=== PATIENT | female | born 1970 | race Caucasian/White ===

== ENCOUNTER 2020-04-18 18:45 | Emergency (ER) | payer MEDICAID, SELFPAY ==
[2020-04-18 19:16] VITALS: BP 117/82; PULSE 77; RESP 16; TEMP 36.8; O2SAT 98; BMI 21.8
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
[2020-04-18 21:39] VITALS: BP 111/73; PULSE 87; RESP 16; O2SAT 98
[2020-04-18] MEDS: diazePAM 5 mg Tablet PO (22:47)
[2020-04-18] MEDS: ondansetron 2 mg/ML SDV 2 mL 4 MG IM (22:47)
[2020-04-18] MEDS: ketorolac 60 mg/2 mL INJ IM (22:47)
[2020-04-18 23:40] VITALS: PULSE 76; RESP 14; O2SAT 98
[2020-04-18 23:41] VITALS: BP 112/74; PULSE 81; RESP 14; O2SAT 98
== END 2020-04-18 23:42 | disposition home or self-care (01) ==
PROVIDERS: Emergency Provider Physician Assistant
DX: F41.9 Anxiety disorder, unspecified (principal); M79.10 Myalgia, unspecified site
CPT/HCPCS: 12345; 96372; 99281; 99283; J1885; J2405

== ENCOUNTER 2020-08-10 14:50 | Emergency (ER) | payer SELFPAY ==
[2020-08-10 14:50] VITALS: BP 136/94; PULSE 73; RESP 18; TEMP 36.6; O2SAT 100; BMI 19.7
[2020-08-10 15:00] VITALS: O2SAT 100
--- NOTE | 2020-08-10 15:12 | ECG_ITS ---
[facility] Test Date: 2020-08-10 Pat Name: Chiquis [facility] Department: Room: Gender: Female Local Sales Associate: : 1970 Requested By: Rogelio Kelly Order Number: [id number] Balta MD: Teressa Vazquez M.D. Measurements Intervals [place] Rate: 60 P: 5 ID: [id number] QRS: 63 QRSD: 87 T: 52 QT: 405 QTc: 407 Interpretive Statements SINUS RHYTHM SEPTAL MYOCARDIAL INFARCTION [40+ ms Q WAVE IN V1/V2], OF INDETERMINATE AGE No previous ECG available for comparison Electronically Signed On 08-10-2020 19:39:21 CDT by Teressa Vazquez M.D. [id number]
--- NOTE | 2020-08-10 15:12 | CT_ITS ---
WS: [id number] CT HEAD NONCONTRAST HISTORY: AMS/fall/seizures with hx of CA TECHNIQUE: Contiguous axial imaging performed through the brain in 2.5 mm imaging. Bone and soft tiss ue windows. Sagittal and coronal reformats reviewed. All CT scans at [facility] use at le ast one of these dose optimization techniques: automated exposure control; mA and/or kV adjustment pe r patient size (includes targeted exams where dose is matched to clinical indication); or iterative r econstruction. DLP: 778.26 mGy.cm COMPARISON: None available. No acute intracranial hemorrhage, midline shift or mass effect. No atrophy or prior infarcts or herniation. Ventricles: Normal size with no hydrocephalus. Paranasal sinuses: As visualized are clear. Mastoid air cells: Well pneumatized. Calvarium and scalp: Skull is intact with no soft tissue edema or swelling. CT/CT head wo con* [id number] IMPRESSION: Negative head CT.
--- NOTE | 2020-08-10 15:12 | XRR_ITS ---
PROCEDURE INFORMATION: Exam: XR Chest, 1 View Exam date and time: 08/10/2020 3:13 PM Age: 50 years old Clinical indication: Cough and dyspnea; Additional info: Dyspnea/cough TECHNIQUE: Imaging protocol: XR of the chest Views: 1 view. COMPARISON: No relevant prior studies available. FINDINGS: Lungs: Unremarkable. No consolidation. Pleural space: Unremarkable. No pleural effusion. No pneumothorax. Heart/Mediastinum: Unremarkable. No cardiomegaly. Bones/joints: Unremarkable. XR/XR chest 1V portable [id number] IMPRESSION: No acute findings.
[2020-08-10 15:19] VITALS: BP 136/94; PULSE 76; RESP 15; O2SAT 100
--- NOTE | 2020-08-10 15:20 | PC.NURSE ---
BGL: 110
[2020-08-10 15:21] LABS: Glucose Point of Care 110 mg/dL (70-110)
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
[2020-08-10 15:40] LABS: ABG PCO2 34.2 mmHg (35-45); ABG PH Result 7.42 (7.35-7.45); Arterial Blood Gas Hematocrit 30.8 % (37-47); Base Excess ABG -1.9 mmol/L (-2.0-2.0); Blood Gas Allen Test Pos; Blood Gas Operator Identificat AMH; Blood Gas Sample Site Radial, right; Blood Gas Sample Type Arterial; Carboxyhemoglobin 0.8 %THgb (0.4-20.1); HCO3 ABG 22.1 mmol/L (22-26); HGB O2 Sat 95.1 % (95-100); Ionized Calcium Level - ABG 1.2 mmol/L (1.1-1.4); Methemoglobin 0.9 % (0.4-1.5); Oxygen Device ROOM AIR; Oxygen Saturation ABG 96.8; PO2 ABG 83.1 mmHg (80.0-100.0); Potassium Level - ABG 3.2 mmol/L (3.5-5.0)
[2020-08-10 15:54] LABS: Alanine Aminotransferase 10 U/L (0-33); Albumin Level 4.3 g/dL (3.5-5.2); Alkaline Phosphatase 73 IU/L (35-105); Anion Gap 19.4 (5-19); Aspartate Amino Transferase 20 U/L (0-32); Blood Urea Nitrogen 7 mg/dL (6-20); Calcium 9.5 mg/dL (8.5-10.5); Carbon Dioxide 19 mmol/L (22-29); Chloride 106 mmol/L (98-107); Creatine Phosphokinase 125 U/L (26-192); Globulin 2.5 g/dL (1.3-4.6); Glomerular Filtration Rate 105.8 mL/min (90-130); Glucose 111 mg/dL (65-115); Lipase 40 U/L (13-60); Osmolality Calculated 291 mOsm/kg (285-295); Potassium 3.4 mmol/L (3.5-5.1); Sodium 141 mmol/L (136-145); Total Bilirubin 0.2 mg/dL (0.15-1.2); Total Protein 6.8 g/dL (6.6-8.7)
[2020-08-10 16:14] VITALS: BP 115/76; PULSE 80; RESP 18; O2SAT 93
[2020-08-10 16:20] LABS: Alcohol Level < 10 mg/dL (0-10)
--- NOTE | 2020-08-10 16:23 | DCPLANNER ---
weight loss centre manager was asked to schedule a follow up appointment for patient with the office of Dr. Roldan. weight loss centre manager called the office of Dr. Roldan, spoke with Cassi, a follow up appointment was scheduled for Monday, August 24, 2020 at 1:00 with Jm CALVILLO. Clinic will call patient with appointment information.
[2020-08-10 16:26] VITALS: BP 111/72; BP 111/76; BP 123/82
[2020-08-10] MEDS: ketorolac 30 mg/mL INJ IVP (17:03)
[2020-08-10 17:30] VITALS: BP 115/80; PULSE 61; RESP 18; O2SAT 98
--- NOTE | 2020-08-27 15:16 | DCPLANNER ---
Patient had a follow up appointment scheduled for 08.24.[address] Roldan - patient did not attend appointment.
== END 2020-08-10 17:31 | disposition home or self-care (01) ==
PROVIDERS: Emergency Provider Family Medicine
DX: G40.909 Epilepsy, unspecified, not intractable, without status epilepticus (principal)
CPT/HCPCS: 12345; 36416; 36600; 70450; 71045; 80051; 80053; 80307; 82550; 82810; 82962; 83690; 83735; 83986; 93005; 96374; 96375; 99284; J1885; J1953

== ENCOUNTER 2020-10-05 16:27 | Inpatient (IN) | payer MEDICAID, SELFPAY ==
[2020-10-05] VITALS (8 sets, daily range): BP systolic 115–126; BP diastolic 68–90; PULSE 70–94; RESP 14–17; TEMP 36.3–37; O2SAT 97–99; BMI 23.5
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
[2020-10-05 18:02] LABS: Add Urine Microscopic? YES; Bilirubin Urine Neg (Negative); Blood Urine Neg (Negative); Glucose Urine UA Norm (Normal); Ketones Urine Negative (Negative); Leukocyte Esterase Urine 2+ (Negative); Nitrate Urine Negative (Negative); Protein Urine Neg (Negative); Specific Gravity, Urine 1.005 (1.005-1.030); Urine Appearance SL Hazy (CLEAR); Urine Color Yellow (Yellow); Urobilinogen Urine Norm (Negative); pH Urine 7 (5-7)
[2020-10-05 18:06] LABS: Add Urine Culture? No; Bacteria Urine TRACE /hpf; Squamous Epithelial Cell Urine 0-4 /hpf (0-5)
[2020-10-05 18:07] LABS: Amphetamines Screen Urine Negative (Negative); Barbiturates Screen Urine Negative (Negative); Benzodiazepines Screen Urine Positive (Negative); Cocaine Screen Urine Negative (Negative); Opiate Screen Urine Negative (Negative); PCP Screen Urine Negative (Negative); THC Screen Urine Positive (Negative)
[2020-10-05 18:45] LABS: Basophils % 0.5 %; Eosinophils # 0.1 10^3/uL (0.0-0.8); Eosinophils % 2.7 %; Hemoglobin 9.9 g/dL (11.5-15.3); Lymphocytes # 1.6 10^3/uL (0.8-4.8); Lymphocytes % 41.7 %; Mean Corpuscular HGB Conc 30.9 g/dL (30.0-36.0); Mean Corpuscular Hemoglobin 24.7 pg (28.0-34.0); Mean Corpuscular Volume 79.8 fL (81-99); Mean Platelet Volume 8.8 fL (7.4-10.4); Monocytes # 0.3 10^3/uL (0.2-0.9); Neutrophils # 1.75 10^3/uL (1.8-7.7); Neutrophils % 46.8 %; Nucleated Red Blood Cells % 0 %; Platelet Count 298 10^3/cmm (130-400); Red Blood Count 4.01 10^6/uL (4.1-5.3); Red Cell Distribution Width 16.7 % (12.1-15.1); White Blood Count 3.7 10^3/uL (4.0-10.0)
[2020-10-05 19:05] LABS: Acetaminophen < 5.0 ug/mL (10-30); Alanine Aminotransferase 63 U/L (0-33); Albumin Level 4.1 g/dL (3.5-5.2); Alcohol Level < 10 mg/dL (0-10); Alkaline Phosphatase 126 IU/L (35-105); Anion Gap 14.2 (5-19); Aspartate Amino Transferase 18 U/L (0-32); Blood Urea Nitrogen 9 mg/dL (6-20); Calcium 9.8 mg/dL (8.5-10.5); Carbon Dioxide 26 mmol/L (22-29); Chloride 105 mmol/L (98-107); Globulin 2.7 g/dL (1.3-4.6); Glomerular Filtration Rate 130.6 mL/min (90-130); Glucose 110 mg/dL (65-115); Osmolality Calculated 291 mOsm/kg (285-295); Potassium 4.2 mmol/L (3.5-5.1); Salicylate < 0.3 mg/dL (3-10); Sodium 141 mmol/L (136-145); Total Bilirubin 0.2 mg/dL (0.15-1.2); Total Protein 6.8 g/dL (6.6-8.7)
--- NOTE | 2020-10-05 19:18 | PC.NURSE ---
Patient report received from JAYSON GAXIOLA and care transferred to KHALIDA Strange
[2020-10-05] MEDS: ketorolac 30 mg/mL INJ IM (19:53)
[2020-10-05] MEDS: diphenhydrAMINE 50 mg/mL SDV 1mL IM (19:53)
[2020-10-05] MEDS: prazosin 1 mg Capsule 2 MG PO (21:13)
[2020-10-06] MEDS: diazePAM 2 mg Tablet PO ×3 (02:12→21:06)
[2020-10-06 05:58] VITALS: BP 104/73; PULSE 86; RESP 16; TEMP 36.9; O2SAT 98
[2020-10-06] MEDS: sertraline 100 mg Tablet PO (06:00)
[2020-10-06] MEDS: acetaminophen-codeine 300-30mg Tablet 1 TAB PO ×2 (06:00→14:35)
[2020-10-06] MEDS: quetiapine 100 mg Tablet PO (07:45)
[2020-10-06 14:00] VITALS: BP 98/65; PULSE 86; RESP 20; TEMP 37.5; O2SAT 98
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
[2020-10-06 20:06] VITALS: BP 117/71; PULSE 97; RESP 19; TEMP 36.6; O2SAT 98
[2020-10-06] MEDS: lamoTRIgine 25 mg Tablet PO (21:06)
[2020-10-06] MEDS: prazosin 1 mg Capsule 3 MG PO (21:06)
--- NOTE | 2020-10-06 21:22 | PC.NURSE ---
PRN VALIUM ADMINISTERED VALIUM 2MG PO FOR PT C/O INCREASING ANXIETY. WILL MONITOR FOR MEDICATION EFFECTIVENESS.
[2020-10-06] MEDS: acetaminophen 325 mg Tablet 650 MG PO (21:59)
[2020-10-06] MEDS: quetiapine 100 mg Tablet 200 MG PO (21:59)
[2020-10-07] MEDS: acetaminophen 325 mg Tablet 650 MG PO ×3 (04:16→21:19)
[2020-10-07 06:00] VITALS: BP 102/67; PULSE 84; RESP 18; TEMP 36.5; O2SAT 97
[2020-10-07] MEDS: sertraline 100 mg Tablet PO (06:05)
[2020-10-07] MEDS: diazePAM 2 mg Tablet PO ×2 (06:41→15:35)
--- NOTE | 2020-10-07 06:42 | PC.NURSE ---
VALIUM ADMINISTERED VALIUM 2MG PO PER PT REQUEST. WILL MONITOR FOR MEDICATION EFFECTIVENESS.
[2020-10-07 07:52] VITALS: PULSE 100; RESP 16; O2SAT 98
[2020-10-07] MEDS: lamoTRIgine 25 mg Tablet PO (08:40)
[2020-10-07] MEDS: quetiapine 100 mg Tablet PO (08:40)
[2020-10-07 14:00] VITALS: BP 104/68; PULSE 88; RESP 20; TEMP 36.5; O2SAT 99
--- NOTE | 2020-10-07 17:34 | P.PN_ITS ---
Subjective NPU Subjective: Interval history: Charlette presents today reporting that she is feeling anxious. She is going to regularly [facility] any changes to her benzodiazepines and we will leave that to her and her outpatient provider. We did discuss the risk benefits and alternatives of adding propranolol and she understood and agreed to proceed as is documented in his note. He did report that she was tolerating the increase in the prazosin and denied any issues at this point with the initiation of the Lamictal. She reports that she is eating okay and sleep is unchanged. She did mention some thoughts about discharge tomorrow and we discussed that she is a voluntary patient and we have no intention of putting her on a 96-hour hold. Mental Status Exam MSE Comments: This is a underweight white female appearing older than her stated age in hospital scrubs with adequate grooming and eye contact. Absent dentition. No abnormal movements except for psychomotor retardation. Cooperative with exam in mild distress. Speech was decreased rate and volume. Mood described as depressed and anxious, affect congruent. Thought process organized. Thought content: Patient endorsed suicidal and homicidal ideation, there were no delusions noted but paranoia reported, she did endorse feeling like she hears voices at times sweats since all this happened. Attention and concentration were intact and memory appeared viable but none were formally tested. He is alert and oriented x3. Insight and judgment are impaired. Vitals/I&O/Wt Last Vital Signs Temp 98.1 F 10/07/20 20:28 Pulse 86 10/07/20 21:30 Resp 18 10/07/20 21:30 BP 103/67 10/07/20 20:28 Pulse Ox 98 10/07/20 21:30 10/07/20 10/07/20 10/08/20 14:59 22:59 06:59 Intake Total 240 / 240 Balance 240 / 240 Data NPU : 10/05/20 18:38 10/05/20 18:38 A&P Additional A&P Information (1) Suicidal ideation: (2) PTSD (post-traumatic stress disorder): (3) Cluster B personality disorder in adult: (4) Major depressive disorder, recurrent: (5) Anxiety disorder, unspecified: This is a 50-year-old white female with a long history of mental health and trauma who presents with recent trauma that has gotten things at a bad place again with significant psychosocial challenges in her current situation which is led to her feeling suicidal. 1. Continue current medication. We will add propranolol 20 mg twice daily. And we will not be changing the value as there are some concerns about med seeking behavior. 2. Continue every 15 minute checks for safety. 3. Encourage individual, group and milieu therapy. 4. We will try to get some collateral information. Involuntary Hold Information 96 Hour Hold: 96 Hour Involuntary Admission: No Attestations NPU Medical Necessity Statement*: Inpatient hospitalization is medically necessary and the clinically appropriate intervention at the time. We will monitor medications and make changes as indicated. Likely length of stay 1-4 days. Coding Level of Care Code Acute Dance [employer] Host/Hostess for [facility]
[2020-10-07 20:28] VITALS: BP 103/67; PULSE 90; RESP 18; TEMP 36.7; O2SAT 96
[2020-10-07] MEDS: quetiapine 100 mg Tablet 200 MG PO (21:17)
[2020-10-07] MEDS: prazosin 1 mg Capsule 3 MG PO (21:17)
[2020-10-07 21:30] VITALS: PULSE 86; RESP 18; O2SAT 98
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
[2020-10-08 06:00] VITALS: BP 89/56; PULSE 84; RESP 18; TEMP 36.4; O2SAT 98
[2020-10-08] MEDS: acetaminophen 325 mg Tablet 650 MG PO (06:07)
[2020-10-08] MEDS: diazePAM 2 mg Tablet PO (06:08)
[2020-10-08] MEDS: sertraline 100 mg Tablet PO (06:47)
[2020-10-08] MEDS: lamoTRIgine 25 mg Tablet PO (08:14)
[2020-10-08] MEDS: quetiapine 100 mg Tablet PO (08:14)
[2020-10-08] MEDS: propranolol 20 mg Tablet PO (13:17)
--- NOTE | 2020-10-08 13:17 | PC.NURSE ---
PRN INDERAL 20 MG GIVEN PO PER PT C/O STATED ANXIETY
[2020-10-08 13:24] VITALS: BP 100/68; PULSE 91; RESP 18; TEMP 36.7; O2SAT 97
[2020-10-08 13:56] VITALS: BP 100/68; PULSE 91; RESP 18; TEMP 36.7; O2SAT 97
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
== END 2020-10-08 15:16 | disposition home or self-care (01) | DRG 885 ==
LOC: ER 16:35 → NP 19:50
PROVIDERS: Admitting Provider Psychiatry & Neurology Psychiatry; Emergency Provider Family Medicine; Visit Provider Psychiatry & Neurology Psychiatry
DX: F33.9 Major depressive disorder, recurrent, unspecified (principal); R45.851 Suicidal ideations; Z81.8 Family history of other mental and behavioral disorders; F43.10 Post-traumatic stress disorder, unspecified; F60.89 Other specific personality disorders; F41.9 Anxiety disorder, unspecified; F12.90 Cannabis use, unspecified, uncomplicated
CPT/HCPCS: 12345; 80053; 80306; 80307; 81001; 85025; 90471; 90686; 96372; 99284; J1200; J1885

== ENCOUNTER 2020-10-20 10:29 | Emergency (ER) | payer MEDICAID, SELFPAY ==
[2020-10-20 10:57] VITALS: BP 99/69; PULSE 83; RESP 16; TEMP 36.6; O2SAT 100; BMI 23.6
--- NOTE | 2020-10-20 11:36 | ED_ITS ---
HPI - Extremity Problem General: Chief complaint: Extremity Injury, Lower Stated complaint: pain in both knees/legs Time Seen by Provider: 10/20/20 11:36 History of Present Illness: HPI Narrative: Patient is a 50-year-old female comes to the ED with bilateral leg pain. Patient says symptoms started about 2 days ago and she denies any acute injury fall or trauma to cause pain. She denies any history of past DVTs or blood clots. Pain is described as aching and muscle cramping pain in the legs that starts on the medial and lateral aspect of the thighs. It worsens when she is up and moving around. She rates her pain a 10 out of 10. Denies any cough, hemoptysis, shortness of breath or chest pain. Associated symptoms: Deny chest pain, fever(s) or rash Review of Systems Const: Denies: fever(s), chills or fatigue Eyes: Denies: change in vision or eye discomfort ENMT: Denies: throat pain, odynophagia, nasal discharge or nasal congestion Card: Denies: chest pain, palpitations, edema, swelling of feet/ankles, dyspnea on exertion or orthopnea Resp: Denies: dyspnea, productive cough or non-productive cough GI: Denies: abdominal pain, nausea, vomiting, diarrhea, constipation or hematochezia : Denies: flank pain, dysuria or hematuria Musc: Reports: extremity pain (Bilateral nontraumatic leg pain.) and muscle cramps (Bilateral lower extremities in the thigh.); Denies: neck pain, back pain or extremity swelling Skin/Breast: Denies: rash or new lesions Neuro: Denies: headache(s), numbness in extremities or weakness in extremities PFS ED PFSH: Social History Smoking and tobacco status: never smoked Physical Exam Const: COMMON NORMALS: no acute distress, patient oriented x3 and alert GENERAL APPEARANCE: cooperative and comfortable HENMT: COMMON NORMALS: normocephalic HEAD & SCALP: normocephalic MOUTH: Normal oral and palatal mucosa present THROAT: posterior oropharynx normal and uvula midline Neck/C-Spine: COMMON NORMALS: supple GENERAL: Yes normal visual inspection Resp: COMMON NORMALS: normal respiratory effort, No retractions, No use of accessory muscles and clear to auscultation bilaterally EFFORT & INSPECTION: Yes able to speak in complete sentences, No tachypneic, No respiratory distress and No labored AUSCULTATION: clear to auscultation bilaterally Cardio: COMMON NORMALS: regular rate, regular rhythm, S1 normal heart sound present, S2 normal heart sound present, No gallops present (Cardio), No clicks present (Cardio), No murmurs present (Cardio) and Peripheral pulses 2+ throughout RATE: regular rate RHYTHM: regular rhythm HEART SOUNDS: S1 normal heart sound present and S2 normal heart sound present PERIPHERAL PULSES: Peripheral pulses 2+ throughout GI: COMMON NORMALS: Normal to inspection, nondistended, normoactive bowel sounds present, Soft to palpation, non-tender and no masses PALPATION: Yes Soft to palpation : COMMON NORMALS: Yes no CVA tenderness BLADDER/KIDNEY EXAM: Yes no CVA tenderness Back/Pelvis: COMMON NORMALS: no CVA tenderness Extremity: COMMON NORMALS: no pedal edema GENERAL: Yes normal exam except as noted and Yes calf tenderness (Bilateral calf tenderness) Neuro: COMMON NORMALS: patient oriented x3 and moves all extremities SENSORIUM/ORIENTATION: Yes alert Skin: GENERAL SKIN EXAM: dry skin Course Vital Signs: Vital signs: Vital Signs Temperature 97.8 F 10/20/20 10:57 Pulse Rate 77 10/20/20 13:29 Respiratory Rate 18 10/20/20 13:29 Blood Pressure 142/71 10/20/20 13:29 Pulse Oximetry 95 10/20/20 13:29 MDM - Extremity (Nontraumatic) MDM Narrative: Medical decision making narrative: Patient is a 50-year-old female comes to the ED with nontraumatic bilateral leg pain and cramping. Denies any injury or trauma to cause pain. Denies shortness of breath, chest pain, hemoptysis. Upon exam patient did have some mild bilateral calf tenderne ss. No edema seen. Ultrasound venous duplex of the lower extremities bilaterally showed no signs of DVT or clots. Patient was diagnosed with leg cramps and sent home with a prescription for methocarbamol and ibuprofen 800s. Return to ED precautions given. Follow-up with PCP in 7 to 10 days. Patient understood and agreed with plan. Imaging Data^: US Vascular: Attestation: I personally reviewed and interpreted this imaging study as follows: Radiologist's impression: [address] [address] Ultrasound Report Signed Patient: Chiquis VillasenorUndino #: [id number] : 1970Acct#:[id number] Age/Sex: 50 / FADM Date: 10/20/20 Loc: ERRoom/Bed: Attending Dr: Ordering Provider/Ordering MD: Thang Marcus Date of Service: 10/20/20 Procedure(s): [place] [id number] Accession Number(s): [id number] Report Number: [id number] Chiquis Villasenor Age: 50 Gender: F : 1970 Exam Date: 10/20/2020 12:28 Ordering Phys: Thang Marcus Technologist: Emperatriz aRmirez Exam Location: [facility] [place] Indication: BLE pain and calf tenderness HISTORY: Lower extremity swelling. Lower extremity pain. PROCEDURES: Venous duplex imaging was performed in bilateral lower extremities. The following venous structures were evaluated: common femoral vein, profunda vein, proximal portion of the greater saphenous vein, superficial femoral vein, and the popliteal vein. In addition, the posterior tibial veins were evaluated. In addition, the posterior tibial and peroneal trunk were evaluated. FINDINGS: Normal 2-D Doppler and augmentation and compressibility throughout the lower extremity venous structures. Additional imaging through the proximal calf veins also reveals no thrombus. Limited evaluation of the greater saphenous vein is patent with no thrombus.. CONCLUSIONS No DVT bilateral lower extremities. Dr. Jessica Villanueva DO (Electronically Signed) Final Date: 20 October 2020 13:22 S Discharge Plan Discharge Patient Disposition: Home Clinical Impression: Bilateral leg cramps Condition: Stable Prescriptions: New Robaxin-750 750 mg tablet 750 mg PO Q8H Qty: 30 RF: 0 ibuprofen 800 mg tablet 800 mg PO Q8H PRN (Reason: pain) Qty: 15 RF: 0 No Action albuterol sulfate [ProAir HFA] 90 mcg/actuation HFA aerosol inhaler 2 puff INHALATION Q6H PRN (Reason: Shortness Of Breath) RF: 0 quetiapine 100 mg Tablet 200 mg PO BEDTIME 30 Days Qty: 30 RF: 1 sertraline 100 mg tablet 100 mg PO DAILY@0700 30 Days Qty: 30 RF: 1 prazosin 1 mg capsule 3 mg PO DAILY@21 RF: 0 quetiapine 100 mg tablet 100 mg PO DAILY@07 RF: 0 diazepam 2 mg tablet 2 mg PO TID@,,20 PRN (Reason: Anxiety) RF: 0 propranolol 20 mg tablet 20 mg PO TID@,,20 PRN (Reason: Anxiety) RF: 0 Lamictal 100 mg tablet 100 mg PO DAILY@07 RF: 0 Discharge Orders: Discharge ED (Routine); Ordered 10/20/20 Ordered By: Thang Marcus Referrals: Azalea Landeros DO [Primary Care Provider] - Discharge Diet: Regular Discharge Activity: Increase activity as tolerated Patient Instructions: Leg Cramps (ED), Muscle Cramp (ED) Activity Restrictions/Additional Instructions: Follow-up with medical provider as directed at next scheduled appointment. Take medications as prescribed. Muscle relaxer can cause some drowsiness so take at night before bed. If you can use during the day use with caution. Rest ice and elevate lower extremities. Drink plenty of fluids stay hydrated. Return to the ER or your medical provider if condition worsens. Please read and understand discharge instructions. If any questions, please ask. 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
--- NOTE | 2020-10-20 12:07 | USCV_ITS ---
Chiquis Villasenor Age: 50 Gender: F : 1970 Exam Date: 10/20/2020 12:28 Ordering Phys: Thang Marcus Technologist: Emperatriz Ramirez Exam Location: [facility] [place] Indication: BLE pain and calf tenderness HISTORY: Lower extremity swelling. Lower extremity pain. PROCEDURES: Venous duplex imaging was performed in bilateral lower extremities. The following venous structures were evaluated: common femoral vein, profunda vein, proximal portion of the greater saphenous vein, superficial femoral vein, and the popliteal vein. In addition, the posterior tibial veins were evaluated. In addition, the posterior tibial and peroneal trunk were evaluated. FINDINGS: Normal 2-D Doppler and augmentation and compressibility throughout the lower extremity venous structures. Additional imaging through the proximal calf veins also reveals no thrombus. Limited evaluation of the greater saphenous vein is patent with no thrombus.. CONCLUSIONS No DVT bilateral lower extremities. Dr. Jessica Villanueva DO (Electronically Signed) Final Date: 20 October 2020 13:22 S
[2020-10-20] MEDS: orphenadrine 30 mg/mL Inj 2 mL 60 MG IM (13:01)
[2020-10-20] MEDS: ketorolac 60 mg/2 mL INJ IM (13:04)
[2020-10-20 13:29] VITALS: BP 142/71; PULSE 77; RESP 18; O2SAT 95
== END 2020-10-20 13:34 | disposition home or self-care (01) ==
PROVIDERS: Emergency Provider Physician Assistant; PCP Family Medicine
DX: R25.2 Cramp and spasm (principal)
CPT/HCPCS: 12345; 93970; 96372; 99281; 99283; J1885; J2360

== ENCOUNTER 2022-11-12 13:36 | Emergency (ER) | payer MEDICAID, SELFPAY ==
[2022-11-12 13:40] VITALS: BP 142/90; PULSE 103; RESP 16; TEMP 36.7; O2SAT 97; BMI 31.6
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
[2022-11-12] MEDS: LORazepam 1 mg Tablet PO (14:22)
[2022-11-12] MEDS: ketorolac 30 mg/mL INJ IM (14:22)
--- NOTE | 2022-11-12 14:32 | ECG_ITS ---
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 Measurements Intervals [place] Rate: 77 P: 42 CA: 182 QRS: 39 QRSD: 86 T: 43 QT: 384 QTc: 435 Interpretive Statements SINUS RHYTHM LOW QRS VOLTAGE IN PRECORDIAL LEADS [QRS DEFLECTION < 1.0 mV IN CHEST LEADS] Compared to ECG 08/10/2020 16:24:21 Low QRS voltage now present Myocardial infarct finding no longer present Electronically Signed On 11-13-2022 10:05:19 ENRICHMENT SPECIALIST by Tal Crowder M.D. [id number]
[2022-11-12] MEDS: ondansetron 4 MG Tablet PO (15:06)
[2022-11-12] MEDS: HYDROcodone-acetaminophen 5-325 mg Tablet 1 TAB PO (15:06)
[2022-11-12 15:23] LABS: Basophils % 0.2 %; Eosinophils # 0.1 10^3/uL (0.0-0.8); Eosinophils % 1.6 %; Lymphocytes # 1.3 10^3/uL (0.8-4.8); Lymphocytes % 15.9 %; Mean Corpuscular HGB Conc 31.3 g/dL (30.0-36.0); Mean Corpuscular Hemoglobin 26.1 pg (28.0-34.0); Mean Corpuscular Volume 83.6 fl (81-99); Mean Platelet Volume 9.4 fL (7.4-10.4); Monocytes # 0.4 10^3/uL (0.2-0.9); Monocytes % 5.3 %; Neutrophils # 6.23 10^3/uL (1.8-7.7); Neutrophils % 76.9 %; Nucleated Red Blood Cells % 0 %; Platelet Count 226 10^3/cmm (130-400); Red Blood Count 3.83 10^6/uL (4.1-5.3); Red Cell Distribution Width 17.3 % (12.1-15.1); White Blood Count 8.1 10^3/uL (4.0-10.0)
[2022-11-12 15:51] LABS: Add Urine Culture? No; Bacteria Urine TRACE /hpf; Bilirubin Urine Neg (Negative); Blood Urine Neg (Negative); Glucose Urine UA Norm (Normal); Ketones Urine Negative (Negative); Leukocyte Esterase Urine Negative (Negative); Nitrate Urine Negative (Negative); Protein Urine Neg (Negative); Specific Gravity, Urine 1.005 (1.005-1.030); Squamous Epithelial Cell Urine RARE /hpf (0-5); Urine Appearance Clear (CLEAR); Urine Color Straw (Yellow); Urobilinogen Urine Norm (Negative); pH Urine 5 (5-7)
[2022-11-12 15:52] LABS: Amphetamines Screen Urine Negative (Negative); Barbiturates Screen Urine Negative (Negative); Benzodiazepines Screen Urine Negative (Negative); Cocaine Screen Urine Negative (Negative); Opiate Screen Urine Negative (Negative); PCP Screen Urine Negative (Negative); THC Screen Urine Positive (Negative)
[2022-11-12 16:00] VITALS: BP 114/75; PULSE 75; RESP 17; O2SAT 96
[2022-11-12 16:01] LABS: Alanine Aminotransferase 12 U/L (0-33); Albumin Level 4.3 g/dL (3.5-5.2); Alkaline Phosphatase 104 U/L (35-105); Blood Urea Nitrogen 11 mg/dL (6-20); Calcium 9.1 mg/dL (8.5-10.5); Carbon Dioxide 24 mmol/L (22-29); Chloride 103 mmol/L (98-107); Glucose 98 mg/dL (65-115); Osmolality Calculated 287 mOsm/kg (285-295); Sodium 139 mmol/L (136-145); Thyroid Stimulating Hormone 1.04 uIU/mL (0.27-4.20); Total Bilirubin 0.2 mg/dL (0.15-1.2); Total Protein 6.3 g/dL (6.6-8.7)
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
[2022-11-12 16:08] LABS: Acetaminophen < 5.0 ug/mL (10-30); Alcohol Level < 10 mg/dL (0-10); Salicylate < 0.3 mg/dL (3-10)
[2022-11-12 16:09] LABS: Anion Gap 16.3 (5-19); Aspartate Amino Transferase 17 U/L (0-32); Potassium 4.3 mmol/L (3.5-5.1)
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
[2022-11-12 17:52] LABS: SARS Covid-2 Antigen negative (Negative)
[2022-11-12 17:53] LABS: Influenza A by IFA negative (Negative); Influenza B by IFA negative (Negative)
[2022-11-12] MEDS: acetaminophen 325 mg Tablet 650 MG PO (20:53)
[2022-11-12 21:06] VITALS: BP 140/87; PULSE 77; RESP 17; O2SAT 99
[2022-11-12 21:33] VITALS: BP 140/86; PULSE 76; O2SAT 98
== END 2022-11-12 21:34 ==
PROVIDERS: Emergency Provider Family Medicine; PCP Family Medicine
DX: R45.851 Suicidal ideations (principal); R10.84 Generalized abdominal pain; F33.2 Major depressive disorder, recurrent severe without psychotic features; Z20.822 Contact with and (suspected) exposure to COVID-19
CPT/HCPCS: 36415; 74176; 80053; 80306; 80307; 81001; 84443; 85025; 87426; 87804; 93005; 96372; 99285; J1885; Q0162

== ENCOUNTER 2024-05-27 01:19 | Emergency (ER) | payer MEDICAID, SELFPAY ==
[2024-05-27 01:19] VITALS: BP 104/65; PULSE 89; RESP 18; TEMP 37.9; O2SAT 96; BMI 31.6
--- NOTE | 2024-05-27 01:29 | ECG_ITS ---
[facility] Test Date: 2024-05-27 Pat Name: Chiquis Villasenor Department: Room: Gender: Female Medical Superintendent: : 1970 Requested By: Lauro Desir Order Number: [id number] Balta MD: Evan Amaya M.D. Measurements Intervals [place] Rate: 92 P: 60 KS: 181 QRS: 62 QRSD: 84 T: 73 QT: 336 QTc: 418 Interpretive Statements SINUS RHYTHM NONSPECIFIC T-WAVE ABNORMALITY Compared to ECG 11/12/2022 14:32:20 T-wave abnormality now present Electronically Signed On 05-27-2024 7:52:22 CDT by Evan Amaya M.D. [id number]
--- NOTE | 2024-05-27 01:29 | XRR_ITS ---
PROCEDURE INFORMATION: Exam: XR Chest Exam date and time: 05/27/2024 1:32 AM Age: 54 years old Clinical indication: Chest pressure; Prior surgery; Surgery date: 6+ months; Surgery type: Thoracotomy; Patient HX: C/O chest pain; Additional info: Chest pain and aspiration TECHNIQUE: Imaging protocol: Radiologic exam of the chest. Views: 1 view. COMPARISON: CR XR chest 1V portable [id number] 08/10/2020 3:32 PM FINDINGS: Lungs: No focal lung consolidation. Pleural spaces: No pleural effusion. No pneumothorax. Heart/Mediastinum: No cardiomegaly. Bones/joints: No acute bony abnormality. XR/XR chest 1V portable [id number] IMPRESSION: No focal lung consolidation.
[2024-05-27 01:42] VITALS: BP 104/65; PULSE 89; RESP 18; O2SAT 95
[2024-05-27 02:21] LABS: Troponin(5th) Baseline < 6 ng/L (0-10)
[2024-05-27 02:36] LABS: Influenza A by IFA negative (Negative); Influenza B by IFA negative (Negative); SARS Covid-2 Antigen negative (Negative)
[2024-05-27] MEDS: lidocaine 2% viscous 15 ML, aluminum-mag hydrox-simethicon 30 ML, sucralfate oral liq 1 GM PO (03:11)
[2024-05-27] MEDS: ketorolac 30 mg/mL INJ IVP (03:13)
[2024-05-27] MEDS: metoclopramide 5 mg/mL SDV 2 mL 10 MG IVP (03:14)
[2024-05-27 03:15] LABS: Basophils % 0.3 %; Eosinophils # 0.2 10^3/uL (0.0-0.8); Eosinophils % 3.5 %; Hematocrit 36.3 % (36-47); Lymphocytes # 0.5 10^3/uL (0.8-4.8); Lymphocytes % 9.1 %; Mean Corpuscular HGB Conc 33.3 g/dL (30-55); Mean Corpuscular Hemoglobin 30.4 pg (27-33); Mean Corpuscular Volume 91.2 fl (85-98); Mean Platelet Volume 10.8 fL (7.4-10.4); Monocytes # 0.3 10^3/uL (0.2-0.9); Monocytes % 4.4 %; Neutrophils # 4.87 10^3/uL (1.8-7.7); Neutrophils % 82.4 %; Nucleated Red Blood Cells % 0 %; Platelet Count 196 10^3/cmm (157-399); Red Blood Count 3.98 10^6/uL (3.85-5.65); Red Cell Distribution Width 14.6 % (12.1-15.1); White Blood Count 5.92 10^3/uL (3.29-11.43)
[2024-05-27] MEDS: LORazepam 2 mg/mL INJ 1 mL 1 MG IVP (03:16)
[2024-05-27 03:17] VITALS: BP 98/58; PULSE 94; RESP 18; O2SAT 94
[2024-05-27 03:30] LABS: Alanine Aminotransferase 54 U/L (0-33); Albumin Level 4.2 g/dL (3.5-5.2); Alkaline Phosphatase 85 U/L (35-105); Anion Gap 17.4 (5-19); Aspartate Amino Transferase 29 U/L (0-32); Blood Urea Nitrogen 10 mg/dL (6-20); Carbon Dioxide 22 mmol/L (22-29); Chloride 105 mmol/L (98-107); Creatinine Clr Calc Pharmacy 84.0198; Globulin 2.1 g/dL (1.3-4.6); Glomerular Filtration Rate 74.7 mL/min (90-130); Glucose 125 mg/dL (65-115); Osmolality Calculated 293 mOsm/kg (285-295); Potassium 3.4 mmol/L (3.5-5.1); Sodium 141 mmol/L (136-145); Total Bilirubin 0.4 mg/dL (0.15-1.2); Total Protein 6.3 g/dL (6.6-8.7)
[2024-05-27 03:47] LABS: Add Urine Microscopic? NO; Charge for UA Resulting for Rev
[2024-05-27 03:50] LABS: Bilirubin Urine Neg (Negative); Blood Urine Neg (Negative); Glucose Urine UA Norm (Normal); Ketones Urine Negative (Negative); Leukocyte Esterase Urine Negative (Negative); Nitrate Urine Negative (Negative); Protein Urine Neg (Negative); Specific Gravity, Urine 1.015 (1.005-1.030); Urine Appearance Clear (CLEAR); Urine Color Yellow (Yellow); Urobilinogen Urine 1 mg/dL (Negative); pH Urine 5 (5-7)
[2024-05-27 04:05] LABS: Troponin 5 2HR Delta 0.00001 ABS# (0-10)
[2024-05-27 04:28] VITALS: BP 97/56; PULSE 92; RESP 18; O2SAT 93
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
== END 2024-05-27 04:18 | disposition home or self-care (01) ==
PROVIDERS: Emergency Provider Emergency Medicine
DX: R07.89 Other chest pain (principal); Z11.52 Encounter for screening for COVID-19
CPT/HCPCS: 36415; 71045; 80053; 81003; 84484; 85025; 87426; 87804; 93005; 96374; 96375; 99285; J1885; J2060; J2765